=== PATIENT | female | born 1975 | race Caucasian/White ===

== ENCOUNTER 2023-03-13 08:53 | Inpatient (IN) | payer MEDICAID, OTHER ==
[~2023-03-13] VITALS: Ht 160 cm; Wt 55.0 kg
[~2023-03-13 08:53] MED LIST: ESCI20TA87 PO; LORA-1001 PO; NOCURR; TRAZ-252 PO; ZOLP-280 PO
[2023-03-13 10:06] LABS: BASOPHILS % (AUTO) 0.1 % (0.0-2.0); EOSINOPHILS % (AUTO) 0 % (1.0-6.0); HEMATOCRIT 43.7 % (36-46); LYMPHOCYTES # (AUTO) 0.7 K/uL (1.0-4.8); LYMPHOCYTES % (AUTO) 5.9 % (22.0-44.0); MEAN CORPUSCULAR HEMOGLOBIN 31.1 pg (26.0-34.0); MEAN CORPUSCULAR HGB CONC 34.3 G/dL (31.0-37.0); MEAN CORPUSCULAR VOLUME 91 fL (80-100); MONOCYTES # (AUTO) 0.4 K/uL (0.1-1.0); MONOCYTES % (AUTO) 3.4 % (2.0-9.0); NEUTROPHILS # (AUTO) 10.5 K/uL (1.8-7.7); PLATELET COUNT (AUTO) 307 K/uL (150-450); RED BLOOD CELL COUNT(AUTO) 4.81 MIL/uL (4.00-5.20); RED CELL DISTRIBUTION WIDTH 12.8 % (11.5-14.5)
[2023-03-13 10:07] LABS: NEUTROPHILS % (AUTO) 90.6 % (40.0-70.0)
[2023-03-13 10:16] LABS: ANION GAP 9 mmol/L (8-16); CALCIUM, TOTAL 9.7 mg/dL (8.8-10.5); CARBON DIOXIDE 26 mmol/L (22-29); CHLORIDE 102 mmol/L (98-107); CREATININE 1.02 mg/dL (0.60-1.30); GLOMERULAR FILTR. RATE CALC 58 mL/min (>60); GLUCOSE,RANDOM 148 mg/dL (70-110); POTASSIUM 3.7 mmol/L (3.5-5.1); SODIUM SERUM 137 mmol/L (136-145)
[2023-03-13 10:22] LABS: ALANINE AMINOTRANSFERASE 17 U/L (12-78); ALBUMIN 4.2 g/dL (3.4-5.0); ALKALINE PHOSPHATASE 114 U/L (46-116); ASPARTATE AMINOTRANSFERASE 17 U/L (15-37); BILIRUBIN,TOTAL 0.9 mg/dL (0.1-1.0); TOTAL PROTEIN, SERUM 8.1 g/dL (6.4-8.2)
[2023-03-13 10:43] LABS: COVID AG,FIA SOURCE NASOPHARYNGEAL
[2023-03-13] MEDS ORDERED: PRAZ2 PO (12:05)
[2023-03-13] MEDS ORDERED: THYR90TA12 PO (12:05)
[2023-03-13] MEDS: LORazepam 1 MG TABLET PO ONE ×2 (13:23→14:27)
[2023-03-13] MEDS: HALOPERIDOL 5 MG TABLET PO ONE ×2 (13:23→14:27)
[2023-03-13 16:18] VITALS: TEMP 98.1
[2023-03-13 16:19] VITALS: BP 137/78; PULSE 78; RESP 18; TEMP 98.1; O2SAT 97
[2023-03-13] MEDS: ZOLPIDEM TARTRATE 10 MG TABLET PO PRN (20:37)
[2023-03-13] MEDS: LORazepam 2 MG TABLET PO PRN (20:37)
[2023-03-13 22:30] VITALS: RESP 18; TEMP 97.7
[2023-03-13] MEDS: HALOPERIDOL 5 MG TABLET PO PRN (22:50)
[2023-03-14] MEDS: LORazepam 2 MG TABLET PO PRN (07:03)
[2023-03-14] MEDS: HALOPERIDOL 5 MG TABLET PO PRN ×2 (07:03→09:25)
[2023-03-14 08:32] VITALS: RESP 18
[2023-03-14] MEDS: ESCITALOPRAM OXALATE 10 MG TABLET PO SCH (14:04)
[2023-03-14] MEDS: LamoTRIgine 25 MG TABLET PO SCH (17:00)
[2023-03-14] MEDS: RisperiDONE 1 MG TABLET PO SCH (17:18)
[2023-03-14] MEDS ORDERED: GuaiFENesin/D-METHORPHAN [SUGAR-FREE] 200-20MG/10 ML SYRUP UDCUP PO PRN (17:30)
[2023-03-14] MEDS ORDERED: DOCUSATE SODIUM 100 MG CAPSULE PO PRN (17:30)
[2023-03-14] MEDS ORDERED: ALBUTEROL SULFATE HFA 90 MCG/PUFF 8 GM INHALER IH PRN (17:30)
[2023-03-14] MEDS ORDERED: MAGNESIUM HYDROXIDE SUSPENSION 30 ML UDCUP PO PRN (17:30)
[2023-03-14] MEDS ORDERED: IBUPROFEN 400 MG TABLET PO PRN (17:30)
[2023-03-14] MEDS ORDERED: LOPERAMIDE HCL 2 MG CAPSULE PO PRN (17:30)
[2023-03-14] MEDS ORDERED: ACETAMINOPHEN 325 MG TABLET PO PRN (17:30)
[2023-03-14] MEDS ORDERED: ONDANSETRON HCL 4 MG TABLET PO PRN (17:30)
[2023-03-14] MEDS ORDERED: PETROLATUM,WHITE 28 GM JELLY TP PRN (17:30)
[2023-03-14] MEDS ORDERED: CloNIDine HCL 0.1 MG TABLET PO PRN (17:30)
[2023-03-14] MEDS ORDERED: MAG HYDROX/AL HYDROX/SIMETH ES 30 ML SUSPENSION UDCUP PO PRN (17:30)
[2023-03-14] MEDS ORDERED: NICOTINE 14 MG/24 HOUR PATCH TD PRN (17:30)
[2023-03-14 18:05] LABS: APPEARANCE,URINE HAZY (CLEAR); BILIRUBIN,URINE NEGATIVE (NEGATIVE); GLUCOSE, URINE (UA) NEGATIVE (NEGATIVE); KETONES,URINE NEGATIVE (NEGATIVE); LEUKOCYTE ESTERASE ,URINE MODERATE (NEGATIVE); NITRATE,URINE NEGATIVE (NEGATIVE); OCCULT BLOOD,URINE NEGATIVE (NEGATIVE); PH,URINE 6.5 (5.0-8.0); PROTEIN,URINE NEGATIVE (NEGATIVE); SPECIFIC GRAVITIY, URINE 1.014 (1.003-1.030); UROBILINOGEN,URINE <=1.0 mg/dL (<=1.0)
[2023-03-14 18:17] LABS: BACTERIA,URINE None Seen /HPF (None Seen); RBC,URINE None Seen /HPF (0-2); SQUAMOUS EPITHELIAL CELL,UR Moderate /LPF (None Seen)
[2023-03-14 20:30] VITALS: BP 104/60; PULSE 71; RESP 18; TEMP 98.1
[2023-03-14] MEDS: CEPHALEXIN MONOHYDRATE 500 MG CAPSULE PO SCH (23:02)
[2023-03-15 07:33] LABS: AMPHET/METH SCREEN,URINE NEGATIVE (NEGATIVE); BARBITURATE SCREEN, URINE NEGATIVE (NEGATIVE); BENZODIAZEPINES SCREEN,URINE NEGATIVE (NEGATIVE); CANNABINOID SCREEN,URINE NEGATIVE (NEGATIVE); COCAINE SCREEN,URINE NEGATIVE (NEGATIVE); METHADONE SCREEN, URINE NEGATIVE (NEGATIVE); OPIATE SCREEN,URINE NEGATIVE (NEGATIVE); PHENCYCLIDINE SCREEN,URINE NEGATIVE (NEGATIVE)
[2023-03-15 08:09] LABS: APPEARANCE,URINE HAZY (CLEAR); BILIRUBIN,URINE NEGATIVE (NEGATIVE); GLUCOSE, URINE (UA) NEGATIVE (NEGATIVE); KETONES,URINE NEGATIVE (NEGATIVE); LEUKOCYTE ESTERASE ,URINE LARGE (NEGATIVE); NITRATE,URINE NEGATIVE (NEGATIVE); OCCULT BLOOD,URINE NEGATIVE (NEGATIVE); PH,URINE 6.5 (5.0-8.0); PROTEIN,URINE 30-70 mg/dL (NEGATIVE); SPECIFIC GRAVITIY, URINE 1.024 (1.003-1.030)
[2023-03-15] MEDS: ESCITALOPRAM OXALATE 10 MG TABLET PO SCH (08:10)
[2023-03-15] MEDS: LamoTRIgine 25 MG TABLET PO SCH ×2 (08:10→16:53)
[2023-03-15] MEDS: RisperiDONE 1 MG TABLET PO SCH ×2 (08:10→16:53)
[2023-03-15] MEDS: CEPHALEXIN MONOHYDRATE 500 MG CAPSULE PO SCH ×2 (08:10→16:53)
[2023-03-15 08:16] VITALS: BP 108/68; PULSE 85; RESP 16; TEMP 97.9; O2SAT 98
[2023-03-15 08:19] LABS: BACTERIA,URINE Moderate /HPF (None Seen); RBC,URINE 0-2 /HPF (0-2); SQUAMOUS EPITHELIAL CELL,UR Many /LPF (None Seen)
[2023-03-15 08:26] LABS: CHOL/HDL RATIO 2.2 (3.9-5.7)
[2023-03-15 08:28] LABS: AMPHET/METH SCREEN,URINE NEGATIVE (NEGATIVE); BARBITURATE SCREEN, URINE NEGATIVE (NEGATIVE); BENZODIAZEPINES SCREEN,URINE NEGATIVE (NEGATIVE); CANNABINOID SCREEN,URINE NEGATIVE (NEGATIVE); COCAINE SCREEN,URINE NEGATIVE (NEGATIVE); METHADONE SCREEN, URINE NEGATIVE (NEGATIVE); OPIATE SCREEN,URINE NEGATIVE (NEGATIVE); PHENCYCLIDINE SCREEN,URINE NEGATIVE (NEGATIVE)
[2023-03-15] MEDS ORDERED: CEPHALEXIN MONOHYDRATE 250 MG CAPSULE PO SCH (09:00)
[2023-03-15 20:03] VITALS: BP 108/77; PULSE 78; RESP 17; TEMP 97.6
[2023-03-15] MEDS: ZOLPIDEM TARTRATE 10 MG TABLET PO PRN (20:26)
[2023-03-16] MEDS: MULTIVITAMINS WITH MINERALS, THERAPEUTIC TABLET PO SCH (08:06)
[2023-03-16] MEDS: ESCITALOPRAM OXALATE 10 MG TABLET PO SCH (08:06)
[2023-03-16] MEDS: RisperiDONE 1 MG TABLET PO SCH ×2 (08:06→16:05)
[2023-03-16] MEDS: LamoTRIgine 25 MG TABLET PO SCH ×2 (08:06→16:05)
[2023-03-16] MEDS: CEPHALEXIN MONOHYDRATE 500 MG CAPSULE PO SCH ×2 (08:06→16:05)
[2023-03-16 08:13] VITALS: BP 112/70; PULSE 77; RESP 17; TEMP 98.1; O2SAT 98
[2023-03-16 20:01] VITALS: BP 127/86; PULSE 100; RESP 18; TEMP 98.4; O2SAT 98
[2023-03-16] MEDS: ZOLPIDEM TARTRATE 10 MG TABLET PO PRN (20:17)
[2023-03-17] MEDS: LORazepam 2 MG TABLET PO PRN (02:39)
[2023-03-17 08:06] VITALS: BP 106/65; PULSE 83; RESP 16; TEMP 97.9; O2SAT 97
[2023-03-17] MEDS: CEPHALEXIN MONOHYDRATE 500 MG CAPSULE PO SCH (08:14)
[2023-03-17] MEDS: MULTIVITAMINS WITH MINERALS, THERAPEUTIC TABLET PO SCH (08:14)
[2023-03-17] MEDS: ESCITALOPRAM OXALATE 10 MG TABLET PO SCH (08:14)
[2023-03-17] MEDS: LamoTRIgine 25 MG TABLET PO SCH ×2 (08:14→08:47)
[2023-03-17] MEDS: RisperiDONE 1 MG TABLET PO SCH (08:14)
[2023-03-17] MEDS ORDERED: LAMO25TA25 PO (10:52)
[2023-03-17] MEDS ORDERED: RISP1TAB98 PO (10:52)
[2023-03-17] MEDS ORDERED: ESCI-8 PO (10:52)
[2023-03-17] MEDS ORDERED: CEPH-558 PO (11:02)
== END 2023-03-17 13:22 | disposition home or self-care (01) | DRG 750 ==
LOC: EMS 09:04 → B3A 12:55
PROVIDERS: ADMIT Psychiatry & Neurology Child & Adolescent Psychiatry; ATTEND Psychiatry & Neurology Child & Adolescent Psychiatry
DX: F20.0 Paranoid schizophrenia (principal); D72.829 Elevated white blood cell count, unspecified; F19.10 Other psychoactive substance abuse, uncomplicated; F41.9 Anxiety disorder, unspecified; Z20.822 Contact with and (suspected) exposure to COVID-19; R73.9 Hyperglycemia, unspecified; N39.0 Urinary tract infection, site not specified; Z79.899 Other long term (current) drug therapy; Z91.011 Allergy to milk products; Z91.018 Allergy to other foods
CPT/HCPCS: 80053; 80061; 80307; 81001; 83036; 84703; 85025; 87086; 87186; 99285; G0480